=== PATIENT | female | born 1965 | race Caucasian/White ===

== ENCOUNTER 2023-11-12 00:59 | Emergency (ER) | payer MEDICAID ==
[~2023-11-12] VITALS: Ht 152.4 cm; Wt 82.0 kg
[2023-11-12 01:12] VITALS: TEMP 97.6; O2SAT 100
[2023-11-12 02:13] LABS: BASOPHILS % 0.8 % (0.0-2.0); EOSINOPHILS % 2.3 % (0.0-5.0); HEMATOCRIT. 39.4 % (36.0-48.0); HEMOGLOBIN. 13.2 g/dL (12.0-16.0); LYMPHOCYTES % 15.9 % (20.0-50.0); MEAN CORPUSCULAR HEMOGLOBIN 31.7 pg (28.0-32.0); MEAN CORPUSCULAR HGB CONC 33.5 g/dL (31.0-37.0); MEAN CORPUSCULAR VOLUME 94.8 fL (81.0-99.0); MEAN PLATELET VOLUME 8.6 fl (7.4-10.4); MONOCYTES % 9.3 % (2.0-8.0); NEUTROPHILS % 71.7 % (40.0-76.0); PLATELET 234 x1000/uL (130-400); RED BLOOD CELL COUNT 4.16 mill/uL (4.2-5.4); RED CELL DISTRIBUTION WIDTH 13.3 % (11.6-14.6); WHITE BLOOD COUNT 7.8 x1000/uL (4.5-11.0)
[2023-11-12 02:15] LABS: CHLORIDE 103 mEq/L (98-107); POTASSIUM 3.9 mEq/L (3.5-5.1); SODIUM 139 mEq/L (136-145)
[2023-11-12 02:16] LABS: CALCIUM 9.1 mg/dL (8.7-10.4); CARBON DIOXIDE 28 mEq/L (21-32)
[2023-11-12 02:21] LABS: CREATININE 1.8 mg/dL (0.6-1.0); GLUCOSE 127 mg/dL (70-105); UREA NITROGEN BLOOD 39 mg/dL (9-23)
[2023-11-12 05:20] VITALS: BP 133/73; PULSE 79; RESP 19
== END 2023-11-12 05:56 | disposition home or self-care (01) ==
LOC: ER 00:59
DX: R53.1 Weakness (principal); E11.9 Type 2 diabetes mellitus without complications; I25.2 Old myocardial infarction; Z98.890 Other specified postprocedural states
CPT/HCPCS: 36415; 80048; 83735; 85025; 93005; 99284

== ENCOUNTER 2024-01-31 22:59 | Emergency (ER) | payer MEDICAID ==
[~2024-01-31] VITALS: Ht 167.6 cm; Wt 91.0 kg
[2024-01-31 23:06] VITALS: O2SAT 98
[2024-01-31] MEDS: AMOXICILLIN/POTASSIUM CLAVULANATE 875/125MG TAB PO ONE (23:30)
[2024-01-31] MEDS ORDERED: ACET-2708 MT (23:32)
[2024-01-31] MEDS ORDERED: AMOX1TAB16 MT (23:32)
[2024-01-31] MEDS ORDERED: DOXY25TA61 MT (23:36)
[2024-01-31] MEDS: KETOROLAC 30MG/ML VIAL IM ONE (23:45)
[2024-01-31] MEDS: ACETAMINOPHEN 325MG TABLET PO ONE (23:46)
[2024-01-31] MEDS: DIPHENHYDRAMINE 25MG CAPSULE PO ONE (23:46)
[2024-02-01 00:03] VITALS: BP 135/76; PULSE 88; RESP 18; TEMP 36.72516; O2SAT 98
== END 2024-02-01 00:08 | disposition home or self-care (01) ==
LOC: ER 22:59
DX: K04.7 Periapical abscess without sinus (principal); I25.2 Old myocardial infarction; E11.9 Type 2 diabetes mellitus without complications; Z98.890 Other specified postprocedural states
CPT/HCPCS: 99284; 96372; Q0163; J1885